=== PATIENT | female | born 1995 | race Caucasian/White ===

== ENCOUNTER → 2019-02-11 | Outpatient (CLI) | payer OTHER ==
--- NOTE | 2019-02-12 08:06 | RADIOLOGY REPORT (SQ) ---
EXAM DESCRIPTION: U/S NON-OB PELVIS TV W/O DOP COMPLETED DATE/TIME: 02/11/2019 11:08 am REASON FOR STUDY: LOWER ABD PAIN (R10.30), UNSPEC DYSPAREUNIA (N94.10) R10.30 LOWER ABDOMINAL PAIN, UNSPECIFIED COMPARISON: None. TECHNIQUE: Dynamic and static grayscale images acquired of the pelvis via transvaginal approach and recorded on PACS. Additional selected color Doppler and spectral images recorded. LIMITATIONS: None. FINDINGS: UTERUS: Contour normal. No mass. Uterus is 7 x 5 x 4 cm in size. ENDOMETRIAL STRIPE: No focal or generalized thickening. No masses. Endometrium 2 mm in thickness. CERVIX: Closed, 2 cm in length. No nabothian cysts. RIGHT OVARY AND DOPPLER: Normal size, 2.6 x 1.8 x 1.6 cm in size. No worrisome masses. Normal color v ascular flow. LEFT OVARY AND DOPPLER: Normal size, 5.2 x 6.1 x 4.4 cm in size. No worrisome masses. There is a 4.9 x 5.8 x 4.1 cm simple cyst in the left adnexa, likely an ovarian cyst. Paraovarian cyst is possible . Normal color vascular flow. FREE FLUID: None noted. OTHER: No other significant finding. IMPRESSION: 5.8 x 4.9 cm left adnexal cyst, ovarian versus paraovarian cyst. TECHNICAL DOCUMENTATION: JOB ID: [id number]- All Rights Reserved Rev Reading location - IP/workstation name: [email or web address]
== END ==
LOC: RAD 09:44
PROVIDERS: ATTEND Physician Assistant
DX: N94.10 Unspecified dyspareunia (principal); R10.30 Lower abdominal pain, unspecified
CPT/HCPCS: 76830